=== PATIENT | female | born 1980 | race Caucasian/White ===

== ENCOUNTER 2018-08-02 22:53 | Observation (INO) | payer OTHER ==
[~2018-08-02] VITALS: Ht 160 cm; Wt 84.8 kg
[~2018-08-02 22:53] MED LIST: PREN1TAB80 PO
[2018-08-03 00:11] VITALS: BP 125/73
== END 2018-08-03 01:00 | disposition home or self-care (01) ==
LOC: 4S 22:53
PROVIDERS: ADMIT Obstetrics & Gynecology; ATTEND Obstetrics & Gynecology
DX: O62.9 Abnormality of forces of labor, unspecified (principal); O09.523 Supervision of elderly multigravida, third trimester; Z3A.39 39 weeks gestation of pregnancy
CPT/HCPCS: 59025; G0378 ×2

== ENCOUNTER 2018-08-03 21:34 | Inpatient (IN) | payer OTHER ==
[~2018-08-03] VITALS: Ht 160 cm; Wt 84.8 kg
[2018-08-03] MEDS ORDERED: OXYTOCIN 30 UNITS/LACT RINGERS 500 ML IV ONE (21:44)
[2018-08-03] MEDS ORDERED: RINGERS SOLUTION,LACTATED 1,000 ML IV ONE (21:44)
[2018-08-03] MEDS ORDERED: CITRIC ACID/SODIUM CITRATE 30 ML SOLUTION UDCUP PO PRN (21:45)
[2018-08-03] MEDS ORDERED: LIDOCAINE/PF 1% 30 ML VIAL INJ PRN (21:45)
[2018-08-03] MEDS ORDERED: FentaNYL CITRATE-PF 100 MCG/2 ML VIAL IVP PRN (21:45)
[2018-08-03] MEDS ORDERED: METOCLOPRAMIDE HCL 5 MG/ML 2 ML VIAL IVP PRN (21:45)
[2018-08-03] MEDS ORDERED: AMPICILLIN SODIUM 2 GM/NS 100 ML IV ONE (21:45)
[2018-08-03] MEDS: RINGERS SOLUTION,LACTATED 1,000 ML IV SCH (21:50)
[2018-08-03 22:10] VITALS: BP 138/81
[2018-08-03 22:17] LABS: BASOPHILS % (AUTO) 1.1 % (0.0-2.0); EOSINOPHILS % (AUTO) 0.8 % (1.0-6.0); HEMATOCRIT 36.3 % (36-46); HEMOGLOBIN 12.2 g/dL (12.0-16.0); LYMPHOCYTES # (AUTO) 2.1 K/uL (1.0-4.8); LYMPHOCYTES % (AUTO) 26.5 % (22.0-44.0); MEAN CORPUSCULAR HEMOGLOBIN 30.7 pg (26.0-34.0); MEAN CORPUSCULAR HGB CONC 33.6 G/dL (31.0-37.0); MEAN CORPUSCULAR VOLUME 91 fL (80-100); MONOCYTES # (AUTO) 0.9 K/uL (0.1-1.0); MONOCYTES % (AUTO) 11.3 % (2.0-9.0); NEUTROPHILS # (AUTO) 4.7 K/uL (1.8-7.7); NEUTROPHILS % (AUTO) 60.3 % (40.0-70.0); PLATELET COUNT (AUTO)-OB 176 K/uL (150-450); RED BLOOD CELL COUNT(AUTO) 3.97 MIL/uL (4.00-5.20); RED CELL DISTRIBUTION WIDTH 15.9 % (11.5-14.5)
[2018-08-03] MEDS ORDERED: ROPIVACAINE HCL/PF 0.2% 100 ML ED ONE (22:25)
[2018-08-03] MEDS ORDERED: ROPIVACAINE HCL/PF 0.2% 100 ML ED PRN (23:00)
[2018-08-03] MEDS ORDERED: DiphenhydrAMINE HCL 50 MG/ML VIAL IVP PRN (23:00)
[2018-08-03] MEDS ORDERED: ONDANSETRON HCL 4 MG/2 ML VIAL IVP PRN (23:00)
[2018-08-04] MEDS: RINGERS SOLUTION,LACTATED 1,000 ML IV SCH (01:07)
[2018-08-04] MEDS ORDERED: AMPICILLIN SODIUM 1 GM/NS 50 ML IV SCH (01:45)
[2018-08-04] MEDS ORDERED: OXYTOCIN 30 UNITS/LACT RINGERS 500 ML IV ONE (04:25)
[2018-08-04] MEDS ORDERED: LIDOCAINE/PF 1% 30 ML VIAL INJ PRN (04:30)
[2018-08-04] MEDS ORDERED: GLYCERIN/WITCH HAZEL LEAF 40 PADS JAR TP PRN (04:30)
[2018-08-04] MEDS ORDERED: LANOLIN 7 GM OINTMENT TP PRN (04:30)
[2018-08-04] MEDS ORDERED: BENZOCAINE 20%/MENTHOL 56 GM SPRAY CANISTER TP PRN (04:30)
[2018-08-04] MEDS ORDERED: OxyCODONE HCL/ACETAMINOPHEN 5-325 MG TABLET PO PRN ×2 (04:30)
[2018-08-04] MEDS: IBUPROFEN 800 MG TABLET PO PRN ×2 (05:47→21:27)
[2018-08-04] MEDS ORDERED: OXYGEN THERAPY IH SCH (08:00)
[2018-08-04] MEDS: MAGNESIUM HYDROXIDE SUSPENSION 30 ML UDCUP PO PRN ×2 (08:50→21:27)
[2018-08-05 06:46] LABS: BASOPHILS % (AUTO) 0.7 % (0.0-2.0); EOSINOPHILS % (AUTO) 1.1 % (1.0-6.0); HEMATOCRIT 31.9 % (36-46); HEMOGLOBIN 10.8 g/dL (12.0-16.0); LYMPHOCYTES # (AUTO) 2.2 K/uL (1.0-4.8); LYMPHOCYTES % (AUTO) 23.8 % (22.0-44.0); MEAN CORPUSCULAR HEMOGLOBIN 31.5 pg (26.0-34.0); MEAN CORPUSCULAR VOLUME 93 fL (80-100); MONOCYTES # (AUTO) 0.8 K/uL (0.1-1.0); MONOCYTES % (AUTO) 8.5 % (2.0-9.0); NEUTROPHILS # (AUTO) 6.2 K/uL (1.8-7.7); NEUTROPHILS % (AUTO) 65.9 % (40.0-70.0); PLATELET COUNT (AUTO)-OB 151 K/uL (150-450); RED BLOOD CELL COUNT(AUTO) 3.44 MIL/uL (4.00-5.20)
[2018-08-05] MEDS ORDERED: IBUP-2071 PO (10:19)
[2018-08-05] MEDS ORDERED: DSS100 PO (10:20)
[2018-08-05] MEDS ORDERED: FERR-89 PO (10:21)
== END 2018-08-05 13:25 | disposition home or self-care (01) | DRG 807 ==
LOC: 4S 21:34 → OBSVTOIN 21:34
PROVIDERS: ADMIT Obstetrics & Gynecology; ATTEND Obstetrics & Gynecology
PROC: 3E02340 Introduction of Influenza Vaccine into Muscle, Percutaneous Approach (ICD-10-PCS; 2018-08-03)
PROC: 10E0XZZ Delivery of Products of Conception, External Approach (ICD-10-PCS; principal; 2018-08-04)
PROC: 3E0R3BZ Introduction of Anesthetic Agent into Spinal Canal, Percutaneous Approach (ICD-10-PCS; 2018-08-04)
PROC: 00HU33Z Insertion of Infusion Device into Spinal Canal, Percutaneous Approach (ICD-10-PCS; 2018-08-04)
DX: O69.81X0 Labor and delivery complicated by cord around neck, without compression, not applicable or unspecified (principal); Z37.0 Single live birth; O77.0 Labor and delivery complicated by meconium in amniotic fluid; O76 Abnormality in fetal heart rate and rhythm complicating labor and delivery; Z3A.39 39 weeks gestation of pregnancy; Z23 Encounter for immunization
CPT/HCPCS: 86850; 86900; 86901; 90686; J0290; J2590; J2795